=== PATIENT | male | born 1985 | race Caucasian/White ===

== ENCOUNTER 2023-10-09 14:07 | Emergency (ER) | payer MEDICAID ==
[~2023-10-09] VITALS: Ht 182.9 cm; Wt 88.5 kg
[2023-10-09] MEDS ORDERED: iohexol 350MG/ML 100ml bottle IV ONE (14:27)
[2023-10-09 14:37] LABS: BASOPHILS # (AUTO) 0.1 X10'3 (0-0.2); BASOPHILS % (AUTO) 0.9 % (0-1); EOSINOPHILS # (AUTO) 0.1 X10'3 (0-0.9); EOSINOPHILS % (AUTO) 1.4 % (0-6); HEMATOCRIT 47.9 % (42.0-52.0); HEMOGLOBIN 16.4 g/dl (14.0-17.9); LYMPHOCYTES # (AUTO) 2.6 X10'3 (1.1-4.8); LYMPHOCYTES % (AUTO) 40.9 % (21-51); MEAN CORPUSCULAR HEMOGLOBIN 31.8 PG (27.0-31.0); MEAN CORPUSCULAR HGB CONC 34.2 g/dL (33.0-36.5); MEAN CORPUSCULAR VOLUME 92.9 FL (78-98); MEAN PLATELET VOLUME 7.5 FL (7.4-10.4); MONOCYTES # (AUTO) 0.5 X10'3 (0-0.9); MONOCYTES % (AUTO) 8.1 % (2-12); NEUTROPHILS # (AUTO) 3.1 X10'3 (1.8-7.7); NEUTROPHILS % (AUTO) 48.7 % (42-75); PLATELET COUNT 286 X10'3 (140-440); RED BLOOD COUNT 5.16 X10'6 (4.70-6.10); WHITE BLOOD COUNT 6.3 X10'3 (4.5-11.0)
[2023-10-09 14:50] LABS: APTT 27 SECONDS (22-32)
[2023-10-09 14:51] LABS: ALANINE AMINOTRANSFERASE 39 U/L (12-78); ALBUMIN 4.3 G/DL (3.4-5.0); ALBUMIN/GLOBULIN RATIO 1.1 (1.1-1.5); ALKALINE PHOSPHATASE 101 IU/L (46-116); ANION GAP 12 (8-16); ASPARTATE AMINO TRANSFERASE 66 U/L (10-37); BILIRUBIN,TOTAL 0.4 MG/DL (0.1-1.0); BLOOD UREA NITROGEN 7 MG/DL (7-18); BUN/CREATININE RATIO 11.3 (10.0-20.0); CALCIUM 8.9 MG/DL (8.5-10.1); CHLORIDE 103 MMOL/L (99-107); CREATININE 0.62 MG/DL (0.60-1.10); GLUCOSE 100 MG/DL (70-104); POTASSIUM 3.9 MMOL/L (3.5-5.1); SODIUM 142 MMOL/L (135-145); TOTAL CARBON DIOXIDE 27.5 MMOL/L (24-32); TOTAL PROTEIN 8.2 G/DL (6.4-8.2); eCRCL 181 ML/MIN; eGFR > 90 ML/MIN
[2023-10-09 14:52] LABS: INR 0.9 INR
[2023-10-09] MEDS ORDERED: gabapentin 400mg capsule PO SCH (16:00)
[2023-10-09] MEDS ORDERED: gabapentin 400mg capsule PO ONE (16:00)
[2023-10-09] MEDS ORDERED: phenobarbital sod 130mg/ml inj. IV STA (16:13)
[2023-10-09] MEDS ORDERED: NORMAL SALINE IV ONE (16:57)
[2023-10-09] MEDS ORDERED: VALPROATE SOD IV ONE ×2 (16:57→17:03)
[2023-10-09] MEDS ORDERED: DEXTROSE 5% IV ONE (17:03)
[2023-10-09] MEDS ORDERED: WATER IV ONE (17:03)
[2023-10-09 17:46] VITALS: BP 137/88
[2023-10-09 20:14] VITALS: PULSE 78; RESP 18; TEMP 98.3; O2SAT 98
[2023-10-09] MEDS ORDERED: LORA-269 PO (20:45)
== END 2023-10-09 21:05 | disposition home or self-care (01) ==
LOC: ER 14:08
DX: F41.9 Anxiety disorder, unspecified (principal); R20.0 Anesthesia of skin
CPT/HCPCS: 36415; 70450; 70551; 71045; 72125; 73080; 73200; 80053; 80164; 82948; 85025; 85610; 85730; 93005; 96365; 96375; 99285; J2560; J3490; J7060; Q9967